=== PATIENT | female | born 1950 | race Asian ===

== ENCOUNTER 2017-05-03 16:55 | Outpatient (CLI) | payer MEDICARE, OTHER ==
--- NOTE | 2017-05-04 17:21 | MRI Report ---
EXAM: MRI LUMBAR SPINE WITHOUT CONTRAST EXAM DATE: 05/03/2017 05:40 PM. CLINICAL HISTORY: Spinal stenosis. COMPARISON: MRI of the lumbar spine without contrast 07/23/2010. TECHNIQUE: Multiplanar, multisequence T1-weighted and fluid-sensitive sequences of the lumbar spine f rom T12 to S1 without contrast. Other: None. FINDINGS: There is straightening of the normal lumbar lordosis. There is a grade 1 anterolisthesis of L4 on L5. There is associated pseudo-bulge. This will be descri bed in greater detail below. The conus terminates at T12-L1. There is a 1 mm retrolisthesis of L3 on L4. There is a mild decrease in the height of the disk with desiccation at L2-L3, L3-L4, mild to moderate at L4-L5 and mild at L5-S1. There are multiple disk bulges or disk osteophyte complexes, which will be described in greater detail below. The abdominal aorta is of normal caliber. There is no significant atrophy of the paraspinal musculatu re or the psoas musculature. L2-L3: There is a small disk bulge eccentric to the left producing a mild central canal stenosis. The re is [id number]-[id number] narrowing of the left neural foramen. The facets are normal. There has been mi ld progression of the central canal stenosis, as previously there was no significant disk bulge or ce ntral canal stenosis. L3-L4: There is a 1 mm retrolisthesis of L3 on L4. There is a small disk bulge abutting the sac with superimposed left paracentral extrusion of the disk. There is a mild central canal stenosis and a mod erate left lateral recess stenosis. The facets are normal. There is mild to moderate right and left neural foraminal narrowing. There is no significant change at this level. L4-L5: There is a grade 1 anterolisthesis of L4 on L5. There is moderate ligamentum flavum hypertroph y. This combination produces a moderate to severe central canal stenosis. Overall, there appears to b e mild progression of the central canal stenosis, which previously was moderate. There is moderate to severe bilateral facet arthropathy. There is mild to moderate right and left foraminal stenosis. L5-S1: There is a small disk bulge with annular tear abutting the sac producing a mild central canal stenosis. The facets are normal. There is mild narrowing of the left neural foramen. The facets are n ormal. There is no significant change at this level. IMPRESSION: 1. There has been progression of the disk bulge and central canal stenosis at L2-L3. There is now a m ild central canal stenosis from a small disk bulge. Previously, there was no significant central ky l stenosis. 2. There is no significant change in the small disk bulge abutting the sac with superimposed left par acentral extrusion of the disk at L3-L4. There is a mild central canal stenosis and a moderate left l ateral recess stenosis. 3. There is a grade 1 anterolisthesis of L4 on L5. This, in combination with ligamentum flavum hypert rophy, produces a moderate to severe central canal stenosis which has progressed from a moderate sten osis since the last exam. 4. There is again an unchanged small disk bulge with annular tear at L5-S1 producing a mild central c anal stenosis. Comment: The following findings are so common in adults without low back pain that while we report th eir presence, they must be interpreted with caution and in the context of the clinical situation. (Re santi Rees et al, Spine 2001) Prevalence of findings in patients without low back pain: Disk degeneration (any evidence): 92% Disk desiccation/T2 signal loss: 83% Disk height loss: 56% Disk bulge: 64% Disk protrusion: 32% Annular tear/high intensity zone: 38% RADIA Referring Provider Line: [phone] SITE ID: [id number]
== END 2017-05-03 16:56 | disposition home or self-care (01) ==
LOC: DI 16:55
PROVIDERS: ATTEND Anesthesiology Pain Medicine
DX: M51.26 Other intervertebral disc displacement, lumbar region (principal); M51.36 Other intervertebral disc degeneration, lumbar region; M43.16 Spondylolisthesis, lumbar region; M47.896 Other spondylosis, lumbar region; M51.37 Other intervertebral disc degeneration, lumbosacral region
CPT/HCPCS: 72148

== ENCOUNTER 2019-03-14 15:14 | Outpatient (CLI) | payer MEDICARE, OTHER ==
--- NOTE | 2019-03-15 15:47 | DEXA Report ---
Reason: POST MENOPAUSAL Procedure Date: 03/14/2019 Accession Number: [id number] / [id number] Procedure: DEX - Dexa Spine and/or Hip CPT Code: Final Report FULL RESULT: EXAM: Dexa Spine and/or Hip DATE: 03/14/2019 4:00 PM CLINICAL HISTORY: POST MENOPAUSAL TECHNIQUE: Dual energy x-ray absorptiometry (DXA) was performed on a [employer] System. Regions measured are the AP Spine, femoral neck, and if needed forearm. COMPARISON: None. In accordance with the International Society for Clinical Densitometry (ISCD) guidelines, data from previous exams may be reanalyzed using current recommendations and techniques. This is done to allow a more accurate basis for comparison with the current study. FINDINGS: The data for the lumbar spine is as follows: BMD (g/cm/cm) T-SCORE Z-SCORE REGION L1 0.866 -2.2 -0.4 L2 0.947 -2.1 -0.3 L3 1.080 -1.0 0.8 L4 1.218 0.2 2.0 TOTAL 1.044 -1.1 0.7 NOTE: All evaluable vertebrae are used for classification The data for the hip is as follows: BMD (g/cm/cm) T-SCORE Z-SCORE REGION Neck 0.743 -2.1 -0.4 TOTAL 0.772 -1.9 -0.4 NOTE: The femoral neck or total proximal femur, whichever is lowest, is used for classification. IMPRESSION: THE WHO CLASSIFICATION BASED ON THE INTERNATIONAL REFERENCE STANDARD IS OSTEOPENIA. THE FRACTURE RISK IS INCREASED. RECOMMENDATION: Patients with diagnosis of osteoporosis or osteopenia should have regular bone mineral density assessment. For those eligible for Medicare, routine testing is allowed once every 2 years. Testing frequency can be increased for patients who have rapidly progressing disease or for those who are receiving medical therapy to restore bone mass. COMMENT: World Health Organization (WHO) definitions for osteoporosis and osteopenia: NORMAL BMD: T-score at -1.0 or higher, fracture risk is low OSTEOPENIA BMD: T-score between -1.0 and -2.5, fracture risk is increased. OSTEOPOROSIS BMD: T-score at -2.5 or lower, fracture risk is high. National Osteoporosis Foundation recommends: 1. Obtain adequate dietary calcium (at least 1200 mg per day) and vitamin D (400-800 international units per day). 2. Participate, as appropriate, in regular weightbearing and muscle-strengthening exercise. 3. Avoid tobacco use and reduce alcohol and caffeine intake. 4. For more detailed information see the website at www.NOF.org.
== END 2019-03-14 15:15 | disposition home or self-care (01) ==
LOC: DI 15:14
PROVIDERS: ATTEND Family Medicine
DX: M85.89 Other specified disorders of bone density and structure, multiple sites (principal)
CPT/HCPCS: 77080

== ENCOUNTER 2019-04-09 16:33 | Outpatient (CLI) | payer MEDICARE, OTHER ==
--- NOTE | 2019-04-10 11:58 | MRI Report ---
Reason: LUMBAR STENOSIS, SPONDYLOLISIS W/RADICULOPATHY Procedure Date: 04/09/2019 Accession Number: [id number] / [id number] Procedure: MRI - Lumbar Spine W/O CPT Code: Final Report FULL RESULT: EXAM: MRI LUMBAR SPINE WITHOUT CONTRAST EXAM DATE: 04/09/2019 05:17 PM. CLINICAL HISTORY: Lumbar stenosis, spondylolysis with radiculopathy. COMPARISON: None. TECHNIQUE: Multiplanar, multisequence T1-weighted and fluid-sensitive sequences of the lumbar spine from T8 to S1 without contrast. Other: None. FINDINGS: Spinal Canal: The conus terminates at L1. The conus medullaris and cauda equina are unremarkable. Alignment: 9 mm anterolisthesis L4 on L5. 2 mm retrolisthesis L3 on L4. These are similar. Bone Marrow: Five pah-isi-oawflkv lumbar vertebral bodies are assumed. No gross fractures or bone lesions. No bone marrow replacement. Mild degenerative endplate edema at L4-L5 and L5-S1. Disk Levels/Facets: Disk desiccation throughout. Mild disk loss at L2-L3, L3-L4, and L5-S1. Moderate to severe disk height loss at L4-L5, minimally progressed. T10-T11: Sagittal images only. Small central protrusion. Minimal facet hypertrophy. Minimal central canal stenosis. Mild bilateral neural foramen stenosis. This is similar. T11-T12: Sagittal images only. Minimal disk bulge. Minimal facet hypertrophy. Mild bilateral neural foramen stenosis. This is similar. T12-L1: Minimal disk bulge. Minimal facet hypertrophy. No stenosis. This is similar. L1-L2: Minimal disk bulge. Minimal facet hypertrophy. No stenosis. This is similar. L2-L3: Small disk bulge, asymmetric to the left. Minimal facet hypertrophy. Minimal central canal stenosis. Mild to moderate left neural foramen stenosis. This is similar. L3-L4: Small disk bulge with left foraminal and far lateral protrusion. Subtle high intensity zone in the right paracentral region. Mild facet and ligamentum flavum hypertrophy. Mild central canal stenosis. Mild to moderate bilateral neural foramen stenosis. This is similar. L4-L5: Uncovering of the disk and moderate broad-based disk bulge. Severe facet and ligamentum flavum hypertrophy. Moderate to severe central canal stenosis. Moderate right and mild to moderate left neural foramen stenosis. This is similar. L5-S1: Small disk osteophyte complex, asymmetric to the left. Small right paracentral disk protrusion with annular tear, slightly increased. Mild facet and ligamentum flavum hypertrophy. Mild central canal stenosis. Disk protrusion likely impinges the traversing right S1 nerve root. Mild right and mild to moderate left neural foramen stenosis, similar. Musculature: Mild fatty atrophy posterior paraspinous musculature. Minimal edema adjacent to the lower lumbar facets. Other: The partially visualized retroperitoneum is unremarkable. IMPRESSION: 1. Small right paracentral disk protrusion with annular tear at L5-S1, slightly increased. This contributes to mild central canal stenosis and likely impinges the traversing right S1 nerve root. Mild right and mild to moderate left neural foramen stenosis, similar. 2. Slight progression of disk height loss at L4-L5. Moderate to severe central canal and moderate right and mild to moderate left neural foramen stenosis, similar. 3. Remaining levels of degenerative change similar to previous. 4. Mild central canal stenosis at L3-L4 with mild to moderate bilateral neural foramen stenosis. 5. Minimal central canal stenosis at L2-L3. Mild to moderate left neural foramen stenosis. Comment: The following findings are so common in adults without low back pain that while we report their presence, they must be interpreted with caution and in the context of the clinical situation. (Reference Jeffreyvik et al, Spine 2001) Prevalence of findings in patients without low back pain: Disk degeneration (any evidence): 92% Disk desiccation/T2 signal loss: 83% Disk height loss: 56% Disk bulge: 64% Disk protrusion: 32% Annular tear/high intensity zone: 38% RADIA
== END 2019-04-09 16:34 | disposition home or self-care (01) ==
LOC: DI 16:33
PROVIDERS: ATTEND Anesthesiology Pain Medicine
DX: M47.816 Spondylosis without myelopathy or radiculopathy, lumbar region (principal); M51.36 Other intervertebral disc degeneration, lumbar region; M51.37 Other intervertebral disc degeneration, lumbosacral region; M51.27 Other intervertebral disc displacement, lumbosacral region; M48.061 Spinal stenosis, lumbar region without neurogenic claudication; M51.24 Other intervertebral disc displacement, thoracic region; M47.814 Spondylosis without myelopathy or radiculopathy, thoracic region
CPT/HCPCS: 72148

== ENCOUNTER 2020-06-10 13:49 | Outpatient (CLI) | payer MEDICARE, OTHER ==
--- NOTE | 2020-06-10 14:53 | XRAY Report ---
PROCEDURE: Shoulder 3 View LT INDICATIONS: L SHOULDER PAIN, ROTATOR CUFF STRAIN L SHOL TECHNIQUE: 3 views of the shoulder were acquired. COMPARISON: None. FINDINGS: Bones: No fractures or dislocations. No suspicious bony lesions. Visualized ribs appear intact. M oderate periarticular osteophyte formation at the acromioclavicular joint. Mild periarticular osteoph yte formation at the glenohumeral joint. Soft tissues: No suspicious soft tissue calcifications. IMPRESSION: Osteoarthritis. No acute fracture. No osseous lesion. If symptoms and/or clinical suspic ion for pathology continue, further assessment with repeat plain films, or advanced imaging (e.g., CT , MRI, or bone scan) is recommended for further assessment. Reviewed by: Carey Way MD on 06/10/2020 2:51 PM PST Approved by: Carey Way MD on 06/10/2020 2:51 PM PST Station ID: [id number]
== END 2020-06-10 13:50 | disposition home or self-care (01) ==
LOC: DI.N 13:49
PROVIDERS: ATTEND Family Medicine
DX: M19.012 Primary osteoarthritis, left shoulder (principal); M25.512 Pain in left shoulder; S46.012D Strain of muscle(s) and tendon(s) of the rotator cuff of left shoulder, subsequent encounter

== ENCOUNTER 2020-06-23 09:18 | Outpatient (CLI) | payer MEDICARE, OTHER ==
--- NOTE | 2020-06-23 12:45 | Mammography Report ---
BILATERAL DIGITAL SCREENING MAMMOGRAM 3D/2D: 06/23/2020 CLINICAL: Routine screening. Comparison is made to exams dated: 08/02/2018 mamm[facility] There are scattered fibroglandular elements in both breasts. No significant masses, calcifications, or other findings are seen in either breast. There has been no significant interval change. IMPRESSION: NEGATIVE There is no mammographic evidence of malignancy. A 1 year screening mammogram is recommended. This exam was interpreted at Station ID: [id number]. NOTE: For mammograms, a report in lay terms will be sent to the patient. Approximately 15% of breast malignancies will not be visualized mammographically. In the management of a palpable breast mass, a negative mammogram must not discourage biopsy of a clinically suspicious lesion. Electronically Signed By: Deborah garcia/mabel:06/23/2020 11:06:06 ACR BI-RADS Category 1: Negative 3341F PARENCHYMAL PATTERN: (A) - The breast(s) demonstrate(s) scattered fibroglandular densities. BI-RADS CATEGORY: (1) - 1 RECOMMENDATION: (ANNUAL) - Recommend routine annual screening mammography. [id number] 1 year screening LATERALITY: (B)
== END 2020-06-23 09:19 | disposition home or self-care (01) ==
LOC: DI.N 09:18
DX: Z12.31 Encounter for screening mammogram for malignant neoplasm of breast (principal)

== ENCOUNTER 2020-07-28 08:00 | Day surgery (SDC) | payer MEDICARE, OTHER ==
[2020-07-28] MEDS ORDERED: LACTATED RINGERS 1,000 ML IV ONE ×2 (08:43→10:37)
[2020-07-28] MEDS ORDERED: fentaNYL 250 MCG/5 ML VIAL ONE (10:03)
[2020-07-28] MEDS ORDERED: MIDAZOLAM 2 MG/2 ML VIAL ONE ×2 (10:03)
[2020-07-28 11:31] VITALS: BP 115/86
== END 2020-07-28 08:01 | disposition home or self-care (01) ==
LOC: SDS 08:00
PROVIDERS: ATTEND Surgery
PROC: 0DBP8ZZ Excision of Rectum, Via Natural or Artificial Opening Endoscopic (ICD-10-PCS; principal; 2020-07-28 09:15)
DX: Z12.11 Encounter for screening for malignant neoplasm of colon (principal); K64.8 Other hemorrhoids; K62.1 Rectal polyp; I10 Essential (primary) hypertension
CPT/HCPCS: 45380; J3010; J7120

== ENCOUNTER 2022-07-27 11:24 | Outpatient (CLI) | payer MEDICARE, OTHER ==
--- NOTE | 2022-07-28 10:41 | Mammography Report ---
BILATERAL DIGITAL SCREENING MAMMOGRAM 3D/2D: 07/27/2022 CLINICAL: Routine screening. Comparison is made to exams dated: 06/23/2020 mammogram - [facility], 08/02/2018 mamm ogram, and 08/02/2017 mammogram - [facility]. There are scattered areas of fibroglandular density in both breasts (category b / 25%-50% glandular t issue). No significant masses, calcifications, or other findings are seen in either breast. There has been no significant interval change. IMPRESSION: NEGATIVE There is no mammographic evidence of malignancy. A 1 year screening mammogram is recommended. Based on the Tyrer Cuzick model (a risk assessment model) the patients lifetime risk is 3.1% and her 10 year risk is 2.3%. According to the ACR, ACS, and NCCN guidelines, an annual breast MRI exam mili g with mammogram is recommended if the patients lifetime risk is 20% or greater. This exam was interpreted at Station ID: [id number]. NOTE: For mammograms, a report in lay terms will be sent to the patient. Approximately 15% of breast malignancies will not be visualized mammographically. In the management of a palpable breast mass, a negative mammogram must not discourage biopsy of a clinically suspicious lesion. Electronically Signed By: Randall Dominguez M.D. [facility] [place]/mabel:07/27/2022 14:55:47 letter sent: No_Letter ACR BI-RADS Category 1: Negative 3341F PARENCHYMAL PATTERN: (A) - The breast(s) demonstrate(s) scattered fibroglandular densities. BI-RADS CATEGORY: (1) - 1 Mammogram [id number] 1 year screening LATERALITY: (B)
== END 2022-07-27 11:25 | disposition home or self-care (01) ==
LOC: DI.N 11:24
PROVIDERS: ATTEND Student in an Organized Health Care Education/Training Program
DX: Z12.31 Encounter for screening mammogram for malignant neoplasm of breast (principal)

== ENCOUNTER 2023-01-29 12:18 | Outpatient (CLI) | payer MEDICARE, OTHER | END 2023-01-29 12:19 | disposition EMS.NT | LOC: EMS 12:18 | DX: S09.90XA Unspecified injury of head, initial encounter (principal); W03.XXXA Other fall on same level due to collision with another person, initial encounter; Y92.838 Other recreation area as the place of occurrence of the external cause ==

== ENCOUNTER 2023-01-29 12:50 | Emergency (ER) | payer MEDICARE, OTHER ==
--- NOTE | 2023-01-29 15:00 | ED Physician Documentation ---
PD HPI HEAD INJURY - Stated complaint Stated Complaint: GLF/HEAD BUMP - Chief complaint Chief Complaint: Trauma Hd/Nk - History obtained from History obtained from: Patient - History of Present Illness Mechanism of head injury: Fell Where head injury occurred: Other (she [place]. Reportedly she was seen to try to stop her friend from falling and they both fell. Pt struck bacvk of head without noted LOC but she does not remember the fall. No vomiting. some headache. Does not take blood thinners.) Timing - onset: Today Location of injury: Back Quality of pain: Aching Associated symptoms: Amnesia (remembers stopping on the walk adn talking with her friend, then remembers awareness on the ground and boht she and friend being helped up.). No: LOC, AMS, Nausea / vomiting, Neck pain, Paresthesias Symptoms worsen with: Palpation Contributing factors: No: Anticoagulated, Intoxicated Similar symptoms before: Has not had sx before Review of Systems Constitutional: denies: Fever, Chills Nose: denies: Rhinorrhea / runny nose, Congestion Throat: denies: Sore throat Cardiac: denies: Chest pain / pressure Respiratory: denies: Cough GI: denies: Abdominal Pain, Vomiting, Diarrhea Skin: denies: Abrasion (s), Laceration (s) Musculoskeletal: denies: Neck pain, Back pain Neurologic: denies: Focal weakness, Numbness PD PAST MEDICAL HISTORY - Past Medical History Cardiovascular: Hypertension, High cholesterol Respiratory: None Endocrine/Autoimmune: None GI: None : None HEENT: Chronic vision loss Psych: None Musculoskeletal: Osteoporosis, Chronic back pain, Other Derm: None - Past Surgical History Past Surgical History: Yes Ortho: Carpal Tunnel surgery /[employer]: Hysterectomy - Present Medications Home Medications: Ambulatory Orders Medication Instructions Recorded Confirmed Felodipine [Plendil] 5 mg PO DAILY 10/11/13 07/28/20 Simvastatin 20 mg PO DAILY 10/11/13 07/28/20 Alendronate [Fosamax] 70 mg PO Q7D 07/28/20 07/28/20 Aspirin [[place] Aspirin] 81 mg PO DAILY 07/28/20 07/28/20 Calcium Carb/Magnesium Hydrox 1 tab PO DAILY 07/28/20 07/28/20 [Antacid Extra Strngth Tab Chew] Cholecalciferol (Vitamin D3) 1,250 mcg PO DAILY 07/28/20 07/28/20 [Vitamin D3] Cyanocobalamin (Vitamin B-12) 1,000 mcg PO DAILY 07/28/20 07/28/20 [Vitamin B-12] [place]-3/Dha/Epa/Fish Oil [Fish Oil 1 each PO DAILY 07/28/20 07/28/20 1,000 mg Softgel] Zinc Gluconate [Zinc] 1 tab PO DAILY 07/28/20 07/28/20 hydroCHLOROthiazide [Hydrodiuril] 12.5 mg PO DAILY 07/28/20 07/28/20 - Allergies Allergies/Adverse Reactions: Allergies Allergy/AdvReac Type Severity Reaction Status Date / Time No Known Drug Allergies Allergy Verified 07/28/20 08:59 - Social History Does the pt smoke?: No Smoking Status: Never smoker Does the pt drink ETOH?: No Does the pt have substance abuse?: No - Immunizations Immunizations are current?: Yes - POLST Patient has POLST: No PD ED PE NORMAL - Vitals Vital signs reviewed: Yes - General General: Alert and oriented X 3, No acute distress, Well developed/nourished - HEENT HEENT: PERRL, EOMI, Other (back of head with local tenderness and small 1 cm area of abrasion. No laceration. No bleeding. Locally tender. ) - Neck Neck: Supple, no meningeal sign, No bony TTP, No adenopathy - Cardiac Cardiac: RRR, No murmur - Respiratory Respiratory: Clear bilaterally - Abdomen Abdomen: Soft, Non tender - Derm Derm: Normal color, Warm and dry - Neuro Neuro: Alert and oriented X 3, transit man 2-12 intact, No motor deficit, No sensory deficit, Normal speech Eye Opening: Spontaneous Motor: Obeys Commands Verbal: Oriented GCS Score: 15 Results - Vitals Vitals: Vital Signs - 24 hr 01/29/23 01/29/23 13:06 16:24 Temperature 36.8 C Heart Rate 84 84 Respiratory 16 15 Rate Blood Pressure 132/68 H 144/82 H O2 Saturation 96 99 Oxygen O2 Source Room air - EKG (time done) 16:07 EKG releavant findings:: EKG personally interpreted by author of this note. Relevant findings are: Rate: Rate (enter#) (77) Rhythm: NSR [place]: Normal Intervals: Normal UT QRS: Normal Ischemia: Normal ST segments. No: ST elevation c/w ischemia, ST depression - Rads (name of study) head CT Relevant Findings:: Prelim report reviewed, EMP independent interpretation of test (no acute intracranial pathology.) PD Medical Decision Making - ED course Complexity details: reviewed results (head CT without acute injury. ), considered differential (patient reportedly tried to help her friend who was falling, to not fall but they both fell over. Patient struck back of head. johnathan fly dazed but not clearly LOC. She was not rememvering the fall itself. Has some headache. No other in jury. ), d/w patient ED course: patient seems to have mild concussion with not remembering the actually fall. Denies feeling badly ahead of it. Was witnessed to try to stop her friend who was falling and both fell. Presume concussive process. No ICH seen on CT. ECG done and is normal. Otherwise no apparent report nor pattern to suggest syncope rather than mechanical fall with anmesia of it. Departure - Departure Disposition: 01 Home, Self Care Clinical Impression: Head contusion, Fall from slip, trip, or stumble, Mild concussion Condition: Stable Record reviewed to determine appropriate education?: Yes Instructions: ED Concussion Follow-Up: Kelvin Garay MD [Primary Care Provider] - Comments: Your head CT scan does not show any acute abnormalities in my view. The CT radiology report is still pending. No obvious bleeding, swelling, tumors, fractures. Your EKG is normal with a normal rhythm and no ischemic pattern. The most likely scenario seems to be that you try to help your friend from falling and fell yourself as well striking your head with a mild concussion leading to not remembering it. You seem well now at this point. Light activity for the next couple of days. There may be some element of slightly lightheaded or slow thought process and mild headache. These would be relatively common for a day or 2. Recheck if any worsening symptoms or prolonged symptoms. Tylenol or ibuprofen if needed for pains. Forms: PCP List Discharge Date/Time: 01/29/23 16:25
[2023-01-29 16:27] VITALS: BP 144/82; O2SAT 99
--- NOTE | 2023-01-29 16:30 | CT Report ---
PROCEDURE: HEAD WO INDICATIONS: GLF TECHNIQUE: Noncontrast 4.5 mm thick angled axial sections acquired from the foramen magnum to the vertex. For r adiation dose reduction, the following was used: automated exposure control, adjustment of mA and/or kV according to patient size. COMPARISON: None. FINDINGS: Image quality: Excellent. CSF spaces: Basal cisterns are patent. No extra-axial fluid collections. Ventricles are normal in size and shape. Brain: No midline shift. No intracranial masses or hemorrhage. Hurtado-white matter interface is norm al. Skull and face: Calvarium and visualized facial bones are intact, without suspicious lesions. Sinuses: Visualized sinuses and mastoids are clear. IMPRESSION: No acute intracranial pathology. Reviewed by: Kulwant Esqueda MD on 01/29/2023 4:29 PM PDT Approved by: Kulwant Esqueda MD on 01/29/2023 4:29 PM PDT Station ID: [id number]
== END 2023-01-29 16:25 | disposition home or self-care (01) ==
LOC: ED 12:50
DX: S06.0X0A Concussion without loss of consciousness, initial encounter (principal); S00.93XA Contusion of unspecified part of head, initial encounter; W18.30XA Fall on same level, unspecified, initial encounter; Y93.01 Activity, walking, marching and hiking; Y92.830 Public park as the place of occurrence of the external cause; I10 Essential (primary) hypertension; E78.00 Pure hypercholesterolemia, unspecified; Z79.82 Long term (current) use of aspirin; Z79.899 Other long term (current) drug therapy
CPT/HCPCS: 93005; 99283; 99284

== ENCOUNTER 2023-10-03 08:00 | Outpatient (CLI) | payer MEDICARE, OTHER | END 2023-10-03 23:59 | disposition home or self-care (01) | LOC: LAB.N 08:00 | PROVIDERS: ATTEND Family Medicine | DX: U07.1 COVID-19 (principal) ==

== ENCOUNTER 2023-10-09 08:45 | Outpatient (CLI) | payer MEDICARE, OTHER | END 2023-10-09 09:00 | disposition home or self-care (01) | LOC: LAB.N 08:45 | PROVIDERS: ATTEND Physician Assistant Medical | DX: R30.0 Dysuria (principal) | CPT/HCPCS: 87086 ==

== ENCOUNTER 2023-10-11 08:00 | Outpatient (CLI) | payer MEDICARE, OTHER | END 2023-10-11 23:59 | disposition home or self-care (01) | LOC: LAB.N 08:00 | PROVIDERS: ATTEND Family Medicine | DX: U07.1 COVID-19 (principal) ==